=== PATIENT | female | born 2000 | race Caucasian/White ===

== ENCOUNTER 2024-01-03 01:03 | Emergency (ER) | payer MEDICAID ==
[~2024-01-03] VITALS: Ht 154.9 cm; Wt 61.0 kg
[2024-01-03 01:22] VITALS: TEMP 98.8; O2SAT 98
[2024-01-03] MEDS: ACETAMINOPHEN 325MG TABLET PO ONE (03:33)
[2024-01-03] MEDS ORDERED: ACET-2708 MT (03:56)
[2024-01-03 04:06] VITALS: BP 123/87; PULSE 85; RESP 17; O2SAT 99
== END 2024-01-03 05:30 | disposition home or self-care (01) ==
LOC: ER 01:03
DX: S05.11XA Contusion of eyeball and orbital tissues, right eye, initial encounter (principal); S63.502A Unspecified sprain of left wrist, initial encounter; M79.661 Pain in right lower leg; Z00.00 Encounter for general adult medical examination without abnormal findings; Y04.0XXA Assault by unarmed brawl or fight, initial encounter; Y93.89 Activity, other specified; Y92.89 Other specified places as the place of occurrence of the external cause; Y99.8 Other external cause status
CPT/HCPCS: 29125; 73110; 73590; 81025; 99284